=== PATIENT | female | born 1995 | race Caucasian/White ===

== ENCOUNTER 2022-08-03 19:10 | Emergency (ER) | payer SELFPAY ==
[2022-08-03 19:18] VITALS: BP 123/74; PULSE 89; RESP 18; TEMP 97.8; BMI 32.5
[2022-08-03] MEDS ORDERED: DIPHTH,PERTUSS(ACELL),TET 0.5 ML DISP.SYRIN IM ONE ×2 (19:27→19:31)
[2022-08-03] MEDS ORDERED: ALBUTEROL SO4 2.5/IPRATROPIUM 0.5 INH SOL 3 ML VIAL.NEB. NEB ONE (19:36)
== END 2022-08-03 19:49 | disposition home or self-care (01) ==
LOC: FER 19:10
PROC: 3E0234Z Introduction of Serum, Toxoid and Vaccine into Muscle, Percutaneous Approach (ICD-10-PCS; principal; 2022-08-03)
DX: S61.012A Laceration without foreign body of left thumb without damage to nail, initial encounter (principal); W26.0XXA Contact with knife, initial encounter
CPT/HCPCS: 90715; 99284-25